=== PATIENT | female | born 1960 | race Caucasian/White ===

== ENCOUNTER 2019-03-14 09:25 | Day surgery (SDC) | payer OTHER ==
[~2019-03-14] VITALS: Ht 160 cm; Wt 68.0 kg
[2019-03-14] MEDS ORDERED: LIDOCAINE 2% 100 MG/5 ML UJET TP ONE (12:00)
[2019-03-14] MEDS ORDERED: fentaNYL 0.05 MG/ML VIAL ONE (12:00)
[2019-03-14] MEDS ORDERED: MIDAZOLAM 2 MG/2 ML VIAL ONE (12:00)
[2019-03-14] MEDS ORDERED: MIDAZOLAM 2 MG/2 ML VIAL IVP ONE (12:07)
[2019-03-14] MEDS ORDERED: fentaNYL 0.05 MG/ML VIAL IVP ONE (12:10)
== END 2019-03-14 13:00 | disposition home or self-care (01) ==
LOC: MDS 09:25 → MTU 09:26 → MDS 13:00
PROVIDERS: ATTEND Internal Medicine Gastroenterology
DX: Z12.11 Encounter for screening for malignant neoplasm of colon (principal); K57.30 Diverticulosis of large intestine without perforation or abscess without bleeding; K62.89 Other specified diseases of anus and rectum; Z90.710 Acquired absence of both cervix and uterus; Z98.890 Other specified postprocedural states; Z79.899 Other long term (current) drug therapy
CPT/HCPCS: 45378; J2250; J3010